=== PATIENT | female | born 1975 | race Caucasian/White ===

== ENCOUNTER 2017-07-02 13:21 | Emergency (ER) | payer MEDICAID ==
[2017-07-02] MEDS: KETOROLAC 30 MG INJ IM (16:41)
== END 2017-07-02 17:21 | disposition home or self-care (01) ==
LOC: FTE 13:21
DX: M25.562 Pain in left knee (principal); M25.561 Pain in right knee; M54.5 Low back pain
CPT/HCPCS: 96372; 99284-25

== ENCOUNTER 2018-09-08 21:08 | Emergency (ER) | payer MEDICAID ==
[2018-09-09] MEDS: CYCLOBENZAPRINE 10 MG TAB PO (00:16)
[2018-09-09] MEDS: HYDROCODONE/APAP (5/325) TAB PO (00:16)
== END 2018-09-09 00:38 | disposition home or self-care (01) ==
LOC: FTE 09-09 00:38
DX: M54.9 Dorsalgia, unspecified (principal); R51 Headache
CPT/HCPCS: 99283; Z7502